=== PATIENT | female | born 1965 | race African-American/Black ===

== ENCOUNTER 2021-04-25 16:59 | Inpatient (IN) | payer OTHER ==
[2021-04-25 18:26] VITALS: BMI 38.7
[2021-04-25] MEDS ORDERED: MAG HYDROX/AL HYDROX/SIMETH 30 ML UNIT-DOSE CUP PO PRN (19:56)
[2021-04-25] MEDS ORDERED: hydrOXYzine PAMOATE 25 MG CAPSULE (FP) PO PRN (19:56)
[2021-04-25] MEDS ORDERED: NICOTINE POLACRILEX 2 MG GUM BUC PRN (19:56)
[2021-04-25] MEDS ORDERED: ACETAMINOPHEN 325 MG TABLET (FP) PO PRN ×2 (19:56)
[2021-04-25] MEDS ORDERED: ONDANSETRON *ODT* 4 MG TABLET SL PRN (19:56)
[2021-04-25] MEDS ORDERED: METHOCARBAMOL 500 MG TABLET PO PRN (19:56)
[2021-04-25] MEDS ORDERED: BISMUTH SUBSALICYLATE 524 MG/30 ML PO PRN (19:56)
[2021-04-25] MEDS ORDERED: IBUPROFEN 400 MG TABLET (FP) PO PRN (19:56)
[2021-04-25] MEDS ORDERED: MAGNESIUM CITRATE 300 ML BOTTLE PO PRN (19:56)
[2021-04-25] MEDS ORDERED: MENTHOL/PHENOL 1 EACH UD MM PRN (19:56)
[2021-04-25] MEDS ORDERED: MAGNESIUM HYDROX 2400MG/30ML ORAL SUSPENSION 30 ML CUP PO PRN (19:56)
[2021-04-26] MEDS: MELATONIN 5 MG TABLETS PO SCH ×2 (02:15→23:54)
[2021-04-26] MEDS: THIAMINE HCL 100 MG TABLET (FP) PO SCH ×2 (02:25→23:54)
[2021-04-26] MEDS ORDERED: PRENATAL VITAMINS W/ FOLIC ACID TABLET (FP) PO SCH (10:00)
[2021-04-26] MEDS ORDERED: NICOTINE 10 MG CARTRIDGE (INHALER) IH PRN (10:09)
[2021-04-26 10:34] LABS: HEMATOCRIT 35.2 % (32.4-45.2); HEMOGLOBIN 11.1 GM/dL (10.7-15.3); MCH 27.8 pg (25.7-33.7); MCHC 31.6 g/dl (32.0-36.0); MEAN CELL VOLUME 87.7 fl (80-96); MEAN PLT VOLUME 9.8 fl (7.5-11.1); PLATELET COUNT 169 10^3/uL (134-434); RBC 4.01 M/mm3 (3.60-5.2); RDW 15.2 % (11.6-15.6); WHITE BLOOD COUNT 5.3 K/mm3 (4.0-10.0)
[2021-04-26 10:44] LABS: CALCIUM 8.6 mg/dL (8.5-10.1)
[2021-04-26 10:45] LABS: ALBUMIN 2.9 g/dl (3.4-5.0); BLOOD UREA NITROGEN 20.9 mg/dL (7-18)
[2021-04-26 10:49] LABS: BILIRUBIN,TOTAL 0.6 mg/dL (0.2-1)
[2021-04-26 19:42] VITALS: BP 138/55; PULSE 69; TEMP 97.8
== END 2021-04-26 22:16 | disposition left against medical advice (07) | DRG 770 ==
LOC: YASAS 16:59 → Y6N 22:13
PROVIDERS: ADMIT Allergy & Immunology; ATTEND Allergy & Immunology
PROC: HZ2ZZZZ Detoxification Services for Substance Abuse Treatment (ICD-10-PCS; principal; 2021-04-25)
DX: F10.230 Alcohol dependence with withdrawal, uncomplicated (principal); F14.20 Cocaine dependence, uncomplicated; F17.210 Nicotine dependence, cigarettes, uncomplicated; K21.9 Gastro-esophageal reflux disease without esophagitis; J45.909 Unspecified asthma, uncomplicated; Z88.0 Allergy status to penicillin; Z98.84 Bariatric surgery status
CPT/HCPCS: 36415; 80053; 85027; 86780; C9803; U0003; U0005